=== PATIENT | female | born 1955 | race Caucasian/White ===

== ENCOUNTER 2019-09-01 13:58 | Emergency (ER) | payer OTHER ==
[2019-09-01 14:05] VITALS: BP 152/92; PULSE 91; RESP 18; TEMP 98
[2019-09-01] MEDS ORDERED: CYCLOBENZAPRINE 10MG STARTER 3 TAB BTL PO STA (14:26)
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
== END 2019-09-01 15:46 | disposition home or self-care (01) ==
LOC: EC 13:58
DX: M62.830 Muscle spasm of back (principal); M62.838 Other muscle spasm; S80.02XA Contusion of left knee, initial encounter; K21.9 Gastro-esophageal reflux disease without esophagitis; E78.5 Hyperlipidemia, unspecified; E07.9 Disorder of thyroid, unspecified; F41.9 Anxiety disorder, unspecified; Z79.890 Hormone replacement therapy; Z79.899 Other long term (current) drug therapy; Z88.1 Allergy status to other antibiotic agents; Z87.891 Personal history of nicotine dependence; V43.52XA Car driver injured in collision with other type car in traffic accident, initial encounter; Y92.410 Unspecified street and highway as the place of occurrence of the external cause
CPT/HCPCS: 99284

== ENCOUNTER → 2021-04-18 | Outpatient (CLI) | payer OTHER ==
--- NOTE | 2021-04-18 15:57 | XR ---
EXAMINATION TYPE: XR Hip Bilateral Complete DATE OF EXAM: 04/18/2021 COMPARISON: NONE HISTORY: Pain TECHNIQUE: 2 views submitted FINDINGS: There is no evidence of erosive change or acute fracture. Joint spaces are preserved. IMPRESSION: 1. No acute process. If symptoms persist consider MRI.
== END | disposition home or self-care (01) ==
LOC: RADXRMAIN 14:27
PROVIDERS: ATTEND Pediatrics
DX: M25.551 Pain in right hip (principal)
CPT/HCPCS: 73521

== ENCOUNTER → 2023-12-29 | Outpatient (CLI) | payer OTHER ==
--- NOTE | 2023-12-31 11:33 | MM ---
Reason for Exam: Screening (asymptomatic). Last mammogram was performed 2 year(s) and 7 month(s) ago. Patient History: Menarche at age 16. First Full-Term at age 26. Postmenopausal. Maternal aunt had breast cancer. Risk Values: Chayito 5 year model risk: 1.4%. NCI Lifetime model risk: 4.9%. Prior Study Comparison: 06/19/2014 Bilateral Screening Mammogram, Unknown. 05/16/2021 Bilateral Screening Mammogram, Unknown. Tissue Density: The breasts are heterogeneously dense, which may obscure small masses. Findings: Analyzed By CAD. There is no suspicious group of microcalcifications or new suspicious mass in either breast. Overall Assessment: Negative, BI-RAD 1 Management: Screening Mammogram of both breasts in 1 year. . Patient should continue monthly self-breast exams. A clinical breast exam by your physician is recommended on an annual basis. This exam should not preclude additional follow-up of suspicious palpable abnormalities. Note on Chayito scores and lifetime risk: 1. A Chayito score greater than 3% is considered moderate risk. If this is the case, consider specialist referral to assess eligibility for a risk reducing agent. 2. If overall lifetime risk for the development of breast cancer is 20% or higher, the patient may qualify for future screening with alternating mammogram and breast MRI. Electronically signed and approved by: Desmond Hawthorne M.D. Radiologis
== END | disposition home or self-care (01) ==
LOC: RADMAMWWP 12:08
PROVIDERS: ATTEND Pediatrics
DX: Z12.31 Encounter for screening mammogram for malignant neoplasm of breast (principal); Z80.3 Family history of malignant neoplasm of breast; Z78.0 Asymptomatic menopausal state
CPT/HCPCS: 77063; 77067

== ENCOUNTER 2024-05-18 07:42 | Day surgery (SDC) | payer OTHER ==
[~2024-05-18 07:42] MED LIST: LACTATED RINGERS 1,000 ML IV SCH
[2024-05-18] MEDS: IV FLUID CONTINUATION 1,000 ML IV ONE (07:58)
[2024-05-18 08:08] VITALS: TEMP 97.3
[2024-05-18] MEDS ORDERED: GLUCAGON 1 MG/ML VIAL ONE (09:22)
[2024-05-18] MEDS ORDERED: PROPOFOL 10 MG/ML 20 ML VIAL IV ONE (09:22)
--- NOTE | 2024-05-18 09:26 | P.GSHP ---
History of Present Illness H&P Date: 05/18/24 Chief Complaint: screening colonoscopy the cystic 8-year-old female presents today for screening colonoscopy. Patient denies a significant GI complaints. Past Medical History Past Medical History: Cancer, GERD/Reflux, Hyperlipidemia, Osteoarthritis (OA), Thyroid Disorder Additional Past Medical History / Comment(s): nose skin History of Any Multi-Drug Resistant Organisms: None Reported Past Surgical History: Section, Cholecystectomy, Orthopedic Surgery, Tubal Ligation Additional Past Surgical History / Comment(s): nose for cancer, right shoulder sx, dand c Past Anesthesia/Blood Transfusion Reactions: Postoperative Nausea & Vomiting (PONV) Additional Past Anesthesia/Blood Transfusion Reaction / Comment(s): no blood transfusion Smoking Status: Former smoker - Past Family History Father Family Medical History: Deep Vein Thrombosis (DVT) Medications and Allergies Home Medications Medication Instructions Recorded Confirmed Type Esomeprazole Magnesium [NexIUM] 40 mg PO DAILY 10/12/14 05/18/24 History Levothyroxine Sodium [Levoxyl] 150 mcg PO DAILY 10/12/14 05/18/24 History Sertraline [Zoloft] 100 mg PO DAILY 10/12/14 05/18/24 History hydrOXYzine pamoate [Hydroxyzine 25 mg PO DIRECTED PRN 10/12/14 05/18/24 History Pamoate] Calcium Carbonate/Vitamin D3 2 tab PO HS 05/12/24 05/18/24 History [Calcium 600 mg-D3 20 mcg (800 unit)] Cholecalciferol (Vitamin D3) 1,250 mcg PO HS 05/12/24 05/18/24 History [Vitamin D3 (1250 Mcg = 50,000 Iu)] Meloxicam [Mobic] 15 mg PO DAILY 05/12/24 05/18/24 History Allergies Allergy/AdvReac Type Severity Reaction Status Date / Time cephalexin monohydrate Allergy Unknown Verified 05/18/24 08:01 [From Keflex] nickel Allergy Itching Verified 05/18/24 08:01 Surgical - Exam Vital Signs Temp Pulse Resp BP Pulse Ox 97.3 F L 92 18 141/88 98 05/18/24 08:07 05/18/24 08:07 05/18/24 08:07 05/18/24 08:07 05/18/24 08:07 - General well developed, well nourished, no distress - Eyes PERRL - ENT normal pinna - Neck no masses - Respiratory normal expansion - Cardiovascular Rhythm: regular - Abdomen Abdomen: soft, non tender Assessment and Plan Assessment: we'll perform screening colonoscopy
--- NOTE | 2024-05-18 09:51 | P.OP ---
Date of Procedure: 05/18/24 Preoperative Diagnosis: screeningg colonoscopy Postoperative Diagnosis: rectal polyp Procedure(s) Performed: colonoscopy Anesthesia: MAC Surgeon: Bear Schulz Pathology: other (rectal polyp) Condition: stable Disposition: PACU Description of Procedure: patient's placed on the endoscopy table in the lateral position. She received IV sedation. Digital rectal exam was performed which revealed no abnormalitiesd. Flexible colonoscope was then placed patient anus and passed throughout the colon. The ileocecal valve was visualized. The cecum, ascending and transverse colon appeared normal. The descending and sigmoid colon appeared normal. Scope back the rectum and a polyp was seen. This removed with the snare. Scope withdrawn for patient.
[2024-05-18 10:08] VITALS: BP 126/72; PULSE 76; RESP 20
== END 2024-05-18 10:25 | disposition home or self-care (01) ==
LOC: ORWHC2ENDO 07:42
PROVIDERS: ATTEND Surgery
DX: Z12.11 Encounter for screening for malignant neoplasm of colon (principal); D12.8 Benign neoplasm of rectum; E78.5 Hyperlipidemia, unspecified; K21.9 Gastro-esophageal reflux disease without esophagitis; E07.9 Disorder of thyroid, unspecified; M19.90 Unspecified osteoarthritis, unspecified site; Z79.1 Long term (current) use of non-steroidal anti-inflammatories (NSAID); Z79.890 Hormone replacement therapy; Z87.891 Personal history of nicotine dependence; Z88.1 Allergy status to other antibiotic agents; Z90.49 Acquired absence of other specified parts of digestive tract; Z98.51 Tubal ligation status; Z88.8 Allergy status to other drugs, medicaments and biological substances; Z85.828 Personal history of other malignant neoplasm of skin
CPT/HCPCS: 45385; 88305